=== PATIENT | male | born 1985 | race Caucasian/White ===

== ENCOUNTER 2020-09-14 03:38 | Emergency (ER) | payer MEDICAID ==
[~2020-09-14] VITALS: Ht 180.3 cm; Wt 70.0 kg
[2020-09-14] MEDS ORDERED: LIDOcaine 1% 30ml preserv. free vial IJ ONE (03:45)
[2020-09-14] MEDS ORDERED: TETanus/Pertussis (Acell)/Diphther VAC/PF (Tdap-Adult) 0.5ml syringe IMVAC ONE (03:45)
[2020-09-14 03:57] VITALS: BP 121/70
[2020-09-14] MEDS ORDERED: LIDOcaine 1% W/epiNEPHrine 1:200,000 10ml vial IJ ONE (04:35)
[2020-09-14] MEDS ORDERED: bacitracin 15gm ointment TP ONE (05:50)
[2020-09-14] MEDS ORDERED: CEPH-585 PO (05:59)
[2020-09-14] MEDS ORDERED: cephalexin 250mg capsule PO ONE (06:00)
== END 2020-09-14 06:35 | disposition home or self-care (01) ==
LOC: ER 03:39
DX: S71.112A Laceration without foreign body, left thigh, initial encounter (principal); Z79.2 Long term (current) use of antibiotics; X58.XXXA Exposure to other specified factors, initial encounter; Y93.89 Activity, other specified; Y92.89 Other specified places as the place of occurrence of the external cause; Y99.8 Other external cause status
CPT/HCPCS: 12035; 90471; 90715; 99284